=== PATIENT | female | born 1960 | race Caucasian/White ===

== ENCOUNTER 2017-12-20 06:50 | Day surgery (SDC) | payer OTHER ==
[2017-12-20] MEDS ORDERED: LIDOCAINE 2% (SDV) 5 ML INJ (09:06)
[2017-12-20] MEDS ORDERED: PROPOFOL 60 ML (09:06)
== END 2017-12-20 12:17 | disposition home or self-care (01) ==
LOC: GIL 06:50
DX: K92.1 Melena (principal); K29.50 Unspecified chronic gastritis without bleeding; D12.5 Benign neoplasm of sigmoid colon; K64.8 Other hemorrhoids; K21.9 Gastro-esophageal reflux disease without esophagitis; E78.5 Hyperlipidemia, unspecified; J45.909 Unspecified asthma, uncomplicated; E66.01 Morbid (severe) obesity due to excess calories; Z68.36 Body mass index [BMI] 36.0-36.9, adult
CPT/HCPCS: 43239; 88305; 88312